=== PATIENT | female | born 1970 | race Caucasian/White ===

== ENCOUNTER 2022-03-30 17:37 | Emergency (ER) | payer MEDICAID ==
[~2022-03-30] VITALS: Ht 144.8 cm; Wt 49.0 kg
[~2022-03-30 17:37] MED LIST: GLIP5TAB12 PO
[2022-03-30 18:21] VITALS: BP 133/67
[2022-03-30] MEDS ORDERED: NAPR-681 MT (21:05)
== END 2022-03-30 21:24 | disposition home or self-care (01) ==
LOC: ER 17:43
DX: S52.512A Displaced fracture of left radial styloid process, initial encounter for closed fracture (principal); S52.612A Displaced fracture of left ulna styloid process, initial encounter for closed fracture; E11.9 Type 2 diabetes mellitus without complications; Z90.49 Acquired absence of other specified parts of digestive tract; Z91.012 Allergy to eggs; X50.0XXA Overexertion from strenuous movement or load, initial encounter; Y93.89 Activity, other specified; Y92.018 Other place in single-family (private) house as the place of occurrence of the external cause
CPT/HCPCS: 29125; 73110; 99283